=== PATIENT | female | born 1980 | race Caucasian/White ===

== ENCOUNTER 2022-03-10 02:05 | Emergency (ER) | payer MEDICAID ==
[~2022-03-10] VITALS: Ht 162.6 cm; Wt 54.5 kg
[2022-03-10 02:19] VITALS: BP 134/88
[2022-03-10] MEDS ORDERED: LORA-1000 PO (02:38)
[2022-03-10] MEDS ORDERED: CEPH-556 PO (02:38)
[2022-03-10] MEDS ORDERED: EPIN0.3P3 IM (02:38)
[2022-03-10] MEDS ORDERED: ATEN-73 PO (02:38)
== END 2022-03-10 03:00 | disposition left against medical advice (07) ==
LOC: EMS 02:08
DX: F10.239 Alcohol dependence with withdrawal, unspecified (principal); Z53.21 Procedure and treatment not carried out due to patient leaving prior to being seen by health care provider

== ENCOUNTER 2022-04-07 13:48 | Emergency (ER) | payer MEDICAID ==
[~2022-04-07] VITALS: Ht 162.6 cm; Wt 56.0 kg
[~2022-04-07 13:48] MED LIST: ATEN-73 PO; CEPH-556 PO; EPIN0.3P3 IM; LORA-1000 PO
[2022-04-07 14:00] VITALS: BP 122/74
== END 2022-04-07 15:20 | disposition left against medical advice (07) ==
LOC: EMS 13:50
DX: F10.20 Alcohol dependence, uncomplicated (principal); F41.9 Anxiety disorder, unspecified; I10 Essential (primary) hypertension; N39.0 Urinary tract infection, site not specified; E10.649 Type 1 diabetes mellitus with hypoglycemia without coma; F17.210 Nicotine dependence, cigarettes, uncomplicated; Z88.0 Allergy status to penicillin; Z91.040 Latex allergy status; Z91.013 Allergy to seafood
CPT/HCPCS: 82962; 99283